=== PATIENT | male | born 1960 | race American Indian/Alaskan Native ===

== ENCOUNTER 2017-08-19 13:19 | Observation (INO) | payer MEDICAID ==
[2017-08-19 13:20] VITALS: BMI 35.6
[2017-08-19] MEDS ORDERED: Clindamycin 600mg/50ml D5W 600 MG/50 ML VIAL IVPB STA (13:38)
--- NOTE | 2017-08-19 13:41 | ED PDOC ---
Lower Extremity Pain/Injury Time Seen by Provider: 08/19/17 13:32 Chief Complaint (Nursing): Lower Extremity Problem/Injury History Per: Patient History/Exam Limitations: no limitations Onset/Duration Of Symptoms: Other (x 1 week) Current Symptoms Are (Timing): Still Present Additional Complaint(s): 56-year-old male, with a history of Hypertension, presents to ED complaining of swelling and redness to right calf x 1 week. Denies fever, chest pain or shortness of breath. No Trauma. PMD: Deshawn Hall Past Medical History Reviewed: Historical Data, Nursing Documentation, Vital Signs Vital Signs: Last Vital Signs Temp 98.8 F 08/19/17 13:27 Pulse 82 08/19/17 13:27 Resp 18 08/19/17 13:27 BP 146/86 08/19/17 13:27 Pulse Ox 99 08/19/17 13:27 - Medical History PMH: Asthma, HTN - Surgical History Surgical History: No Surg Hx - Family History Family History: States: Unknown Family Hx - Home Medications Home Medications: Ambulatory Orders Medication Instructions Recorded Albuterol Sulfate [Albuterol 3 ml IH Q4 #1 barbara 12/27/13 Sulfate 2.5mg/3 ml 0.083%] Albuterol [Proventil] 0.09 mg IH Q4 #1 pkg 12/27/13 Azithromycin 250 mg PO DAILY #0 tab 12/27/13 Albuterol Sulfate [Proair Hfa] 0.09 mg IH Q6H PRN #2 inh 04/12/15 Azithromycin [Zithromax Z-Bennie] 250 mg PO DAILY 5 Days tab 04/12/15 Prednisone 20 mg PO BID #10 tab 04/12/15 Albuterol HFA [Ventolin HFA 90 2 puff IH [id number] #1 puff 07/28/15 mcg/actuation (8 g)] Fluticasone/Salmeterol 250/50 1 puff IH Q12 #1 puff 07/28/15 [Advair Diskus] Albuterol 0.042% [Albuterol 0.042% 3 ml IH Q6 #1 packet 10/07/15 Inhal Barbara (1.25mg/3ml) UD] Cyclobenzaprine [Cyclobenzaprine 10 mg PO TID #20 tab 10/07/15 HCl] Ibuprofen [Motrin] 600 mg PO Q6 #20 tab 10/07/15 Albuterol 0.042% [Albuterol 0.042% 3 ml IH Q6 #1 packet 10/16/15 Inhal Barbara (1.25mg/3ml) UD] Guaifenesin/Pseudoephedrne HCl 1 tab PO DAILY PRN #30 ter 10/16/15 [Mucinex D 600 mg-60 mg] Promethazine HCl/Codeine 5 ml PO HS #80 ml 10/16/15 [Promethazine HCl-Codeine Phosphate 10 mg/5 ml] Albuterol HFA [Ventolin HFA 90 2 puff IH [id number] PRN #0 puff 12/18/15 mcg/actuation (8 g)] Metoprolol Tartrate 50 mg PO DAILY #30 tablet 12/18/15 - Allergies Allergies/Adverse Reactions: Allergies Allergy/AdvReac Type Severity Reaction Status Date / Time No Known Allergies Allergy Verified 10/16/15 11:38 Review of Systems ROS Statement: Except As Marked, All Systems Reviewed And Found Negative Constitutional: Negative for: Fever Cardiovascular: Negative for: Chest Pain Respiratory: Negative for: Shortness of Breath Musculoskeletal: Positive for: Other (Swelling and redness to right calf) Physical Exam - Reviewed Nursing Documentation Reviewed: Yes Vital Signs Reviewed: Yes - Physical Exam Cardiovascular/Chest: Positive for: Regular Rate, Rhythm Respiratory: Positive for: Normal Breath Sounds. Negative for: Respiratory Distress Extremity: Positive for: Swelling (Right Lower Extremity: swelling and erythema circumstantially from mid-chong to ankle). Negative for: Calf Tenderness, Other (Homans sign) - Laboratory Results Result Diagrams: 08/19/17 14:04 - ECG O2 Sat by Pulse Oximetry: 99 (RA) Pulse Ox Interpretation: Normal Medical Decision Making Medical Decision Making: Time: 13:37 Plan: - EKG - CMP - CBC - Cleocin 600 mg Sodium Chloride 0.9% 50 ml IVPB - Blood Culture - Duplex Lower Extremity Vein Right Ultrasound Scribe Attestation: Documented by López Phillips, acting as a scribe for Praveen Zuluaga MD Provider Scribe Attestation: All medical record entries made by the Scribe were at my direction and personally dictated by me. I have reviewed the chart and agree that the record accurately reflects my personal performance of the history, physical exam, medical decision making, and the department course for this patient. I have also personally directed, reviewed, and agree with the discharge instructions and disposition. Disposition - Clinical Impression Clinical Impression: DVT (deep venous thrombosis) - Patient ED Disposition Is Patient to be Admitted: Yes - Disposition Disposition Time: 15:49 Condition: FAIR Forms: [email or web address] ([place]) - Pt Status Changed To: Hospital Disposition Of: Observation - POA Present On Arrival: None
[2017-08-19 14:11] LABS: BASO # 0.1 K/uL (0.0-0.2); BASO % 1.1 % (0.0-2.0); EOS # 0.4 K/uL (0.0-0.7); EOS % 5.4 % (0.0-4.0); HEMOGLOBIN 13.9 g/dL (12.0-18.0); LYMPH # 2.8 K/uL (1.0-4.3); LYMPH % 37.9 % (20.0-40.0); MEAN CORPUSCULAR HEMOGLOBIN 27.4 pg (27.0-31.0); MEAN CORPUSCULAR HGB CONC 33.5 g/dL (33.0-37.0); MEAN PLATELET VOLUME 8.1 fl (7.2-11.7); MONO # 0.5 K/uL (0.0-0.8); MONO % 6.5 % (0.0-10.0); NEUT # 3.6 K/uL (1.8-7.0); NEUT % 49.1 % (50.0-75.0); NRBC % 0.2 % (0.0-0.0); RBC 5.07 Mil/uL (4.40-5.90); RED CELL DISTRIBUTION WIDTH 16.3 % (11.5-14.5); WHITE BLOOD COUNT 7.4 K/uL (4.8-10.8)
[2017-08-19] MEDS ORDERED: Clindamycin 600mg/50ml NS 600 MG/50 ML BAG IVPB ONE (14:42)
[2017-08-19] MEDS ORDERED: Clindamycin in NS 300 MG/50 ML BAG IV ONE (16:00)
[2017-08-19] MEDS ORDERED: Enoxaparin 120 mg Syringe SC ONE (16:00)
--- NOTE | 2017-08-19 16:11 | US ---
PROCEDURE: Right lower extremity venous duplex Doppler. HISTORY: r/o DVT COMPARISON: None available. TECHNIQUE: Common femoral, superficial femoral, popliteal and posterior tibial veins were evaluated. Flow was assessed with color Doppler, compressibility, assessment of phasic flow and augmentation response. FINDINGS: COMMON FEMORAL VEIN: Unremarkable. SUPERFICIAL FEMORAL VEIN: Proximal SFV is compressible, augments and exhibits normal phasic color Doppler blood flow with no suspicious grayscale findings. However, intermediate echoes are are seen throughout the visualize lumen of the mid to distal SFV with no color Doppler blood flow or compressibility of this segment compatible with occlusive thrombosis. POPLITEAL VEIN: Occlusive thrombosis identified here identical to that seen in the mid to distal right SFV, manifest by noncompressibility, intermediate echogenicity in the lumen and lack of spontaneous color Doppler blood flow. POSTERIOR TIBIAL VEIN: Unremarkable. OTHER FINDINGS: None. IMPRESSION: Occlusive thrombosis at mid to distal right superficial femoral vein and the entire popliteal vein. Findings discussed with Dr. Zuluaga 08/19/2017 4:10 p.m. with written down and read back verification.
[2017-08-19] MEDS ORDERED: Albuterol HFA 90 mcg/actuation (8 g) IH PRN (16:44)
[2017-08-19 17:06] LABS: ALBUMIN 3.9 g/dL (3.5-5.0); ALT/SGPT 50 U/L (21-72); AST/SGOT 50 U/L (17-59); BLOOD UREA NITROGEN 15 mg/dl (9-20); CALCIUM 9.2 mg/dL (8.4-10.2); GFR AFRICAN-AMERICAN > 60; GFR NON-AFRICAN AMERICAN > 60
[2017-08-19 18:45] VITALS: O2SAT 95
[2017-08-19] MEDS ORDERED: Pneumococcal 23-Valent Vaccine IM ONE (19:01)
[2017-08-19] MEDS ORDERED: Enoxaparin 120 mg Syringe SC SCH (21:00)
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
[2017-08-20] MEDS ORDERED: Enoxaparin 120 mg Syringe SC SCH (06:00)
[2017-08-20 06:43] LABS: BASO % 0.7 % (0.0-2.0); EOS # 0.4 K/uL (0.0-0.7); EOS % 7.9 % (0.0-4.0); HEMOGLOBIN 13.5 g/dL (12.0-18.0); LYMPH % 36.9 % (20.0-40.0); MEAN CELL VOLUME 81.9 fl (80.0-94.0); MEAN CORPUSCULAR HEMOGLOBIN 27.5 pg (27.0-31.0); MEAN CORPUSCULAR HGB CONC 33.5 g/dL (33.0-37.0); MEAN PLATELET VOLUME 8.5 fl (7.2-11.7); MONO # 0.4 K/uL (0.0-0.8); MONO % 7.6 % (0.0-10.0); NEUT # 2.5 K/uL (1.8-7.0); NEUT % 46.9 % (50.0-75.0); NRBC % 0.2 % (0.0-0.0); RBC 4.92 Mil/uL (4.40-5.90); RED CELL DISTRIBUTION WIDTH 16.5 % (11.5-14.5); WHITE BLOOD COUNT 5.3 K/uL (4.8-10.8)
[2017-08-20 06:47] LABS: PROTHROMBIN TIME 11.4 Seconds (9.8-13.1)
[2017-08-20 06:48] LABS: PARTIAL THROMBOPLASTIN TIME 36.8 Seconds (25.6-37.1)
[2017-08-20 06:50] LABS: ALB/GLOB RATIO 0.9 (1.0-2.1); ALBUMIN 3.4 g/dL (3.5-5.0); ALT/SGPT 43 U/L (21-72); AST/SGOT 40 U/L (17-59); BLOOD UREA NITROGEN 17 mg/dl (9-20); CALCIUM 9.2 mg/dL (8.4-10.2); GFR AFRICAN-AMERICAN > 60; GFR NON-AFRICAN AMERICAN > 60
--- NOTE | 2017-08-20 07:17 | CP.PCM.CON ---
History of Present Illness - History of Present Illness History of Present Illness: Podiatry Consult Note - Dr. Villalba 56M PMHx HTN seen and evaluated at bedside concerning a right foot blister. Patient resting in bed comfortably, NAD. Patient states he first developed the blister about 1 week ago from his boots. Patient reports after his right lower extremity swelled, his foot became too swollen for his boots and felt constant friction on the bottom of his foot. Patient states he has been putting unknown OTC compound cream for treatment. Reports pain only with ambulation. Denies N/V/ F/D/C/SOB/calf pain. Offers no other complaints. Review of Systems - Review of Systems All systems: reviewed and no additional remarkable complaints except (as per HPI ) Past Patient History - Infectious Disease Hx of Infectious Diseases: None - Past Medical History & Family History Past Medical History?: Yes - Past Social History Smoking Status: Heavy Smoker > 10 Cigarettes Daily - CARDIAC Hx Cardiac Disorders: Yes Hx Hypotension: Yes - PULMONARY Hx Respiratory Disorders: Yes Hx Asthma: Yes - NEUROLOGICAL Hx Neurological Disorder: No - HEENT Hx HEENT Problems: No - RENAL Hx Chronic Kidney Disease: No - ENDOCRINE/METABOLIC Hx Endocrine Disorders: No - HEMATOLOGICAL/ONCOLOGICAL Hx Blood Disorders: No - INTEGUMENTARY Hx Dermatological Problems: No - MUSCULOSKELETAL/RHEUMATOLOGICAL Hx Musculoskeletal Disorders: No Hx Falls: No - GASTROINTESTINAL Hx Gastrointestinal Disorders: No - GENITOURINARY/GYNECOLOGICAL Hx Genitourinary Disorders: No - PSYCHIATRIC Hx Psychophysiologic Disorder: No Hx Substance Use: No - SURGICAL HISTORY Hx Surgeries: No - ANESTHESIA Hx Anesthesia: No Hx Anesthesia Reactions: No Hx Malignant Hyperthermia: No Has any member of the family had a problem w/ anesthesia?: No Meds Allergies/Adverse Reactions: Allergies Allergy/AdvReac Type Severity Reaction Status Date / Time No Known Allergies Allergy Verified 10/16/15 11:38 - Medications Medications: Current Medications Albuterol (Ventolin Hfa 90 Mcg/Actuation (8 G)) 2 puff IH Q6 PRN PRN Reason: Shortness of Breath Enoxaparin Sodium (Lovenox) 120 mg SC Q12@0600,1800 STEPHANIE PRN Reason: Protocol Last Admin: 08/20/17 06:34 Dose: 120 mg Home Med (Buprenorphine Hcl/Naloxone Hcl [Suboxone 8 Mg-2 Mg Sl Film]) 1 film SL Q12 [facility] Metoprolol Tartrate (Lopressor) 50 mg PO Q12 [facility] Last Admin: 08/19/17 21:29 Dose: 50 mg Montelukast Sodium (Singulair) 10 mg PO HS [facility] Last Admin: 08/19/17 21:29 Dose: 10 mg Pantoprazole Sodium (Protonix Ec Tab) 40 mg PO DAILY [facility] Physical Exam - Constitutional Appears: Well, Non-toxic, No Acute Distress - Extremities Exam Additional comments: RLE focused physical exam: VASC: DP and PT pulses palpable 2/4. CFT <3 seconds to all digits. Temperature gradient cool to cool. Nonpitting edema noted to RLE. NEURO: Light touch, motor, and protective sensation intact. DERM: Serous-filled blister measuring approximately 0.5 x 1cm noted proximal sub 1st met head. Hyperkeratotic lesion sub 2nd met head. ORTHO: Pain on palpation to blister. Muscle strength 5/5 for all dorsiflexors, plantarflexors, inverters, everters. - Neurological Exam Neurological exam: Alert, Oriented x3 - Psychiatric Exam Psychiatric exam: Normal Affect, Normal Mood Results - Vital Signs Recent Vital Signs: Last Vital Signs Temp 97.8 F 08/20/17 00:23 Pulse 68 08/20/17 00:23 Resp 18 08/20/17 00:23 BP 96/60 L 08/20/17 00:23 Pulse Ox 95 08/20/17 00:23 - Labs Result Diagrams: 08/20/17 05:30 08/20/17 05:30 Labs: Laboratory Results - last 24 hr 08/19/17 08/19/17 08/20/17 14:04 16:40 05:30 WBC 7.4 5.3 RBC 5.07 4.92 Hgb 13.9 13.5 Hct 41.5 40.3 MCV 82.0 81.9 MCH 27.4 27.5 MCHC 33.5 33.5 RDW 16.3 H 16.5 H Plt Count 129 L 145 MPV 8.1 8.5 Neut % (Auto) 49.1 L 46.9 L Lymph % (Auto) 37.9 36.9 [place] % (Auto) 6.5 7.6 Eos % (Auto) 5.4 H 7.9 H Baso % (Auto) 1.1 0.7 Neut # (Auto) 3.6 2.5 Lymph # (Auto) 2.8 2.0 [place] # (Auto) 0.5 0.4 Eos # (Auto) 0.4 0.4 Baso # (Auto) 0.1 0.0 PT INR APTT Sodium 143 Potassium 4.2 Chloride 102 Carbon Dioxide 27 Anion Gap 18 BUN 15 Creatinine 0.9 Est GFR ( Amer) > 60 Est GFR (Non-Af Amer) > 60 Random Glucose 89 Calcium 9.2 Total Bilirubin 1.0 AST 50 ALT 50 Alkaline Phosphatase 91 Total Protein 7.8 Albumin 3.9 Globulin 3.9 Albumin/Globulin Ratio 1.0 08/20/17 08/20/17 05:30 05:30 WBC RBC Hgb Hct MCV MCH MCHC RDW Plt Count MPV Neut % (Auto) Lymph % (Auto) [place] % (Auto) Eos % (Auto) Baso % (Auto) Neut # (Auto) Lymph # (Auto) [place] # (Auto) Eos # (Auto) Baso # (Auto) PT 11.4 INR 1.0 APTT 36.8 Sodium 142 Potassium 4.4 Chloride 99 Carbon Dioxide 30 Anion Gap 17 BUN 17 Creatinine 1.0 Est GFR ( Amer) > 60 Est GFR (Non-Af Amer) > 60 Random Glucose 112 H Calcium 9.2 Total Bilirubin 1.1 AST 40 ALT 43 Alkaline Phosphatase 80 Total Protein 7.2 Albumin 3.4 L Globulin 3.8 Albumin/Globulin Ratio 0.9 L Assessment & Plan - Assessment and Plan (Free Text) Assessment: 56M PMHx HTN with friction blister to right foot, stable Plan: Patient seen and evaluated Discussed with attending, Dr. Deejay Holloway, WBC WNL Blister lanced using a #18 gauge needle without incident, able to express approximately 0.1cc serous fluid - dressed with xeroform, DSD Blister appears stable at this time, will continue to monitor Podiatry will continue to follow
--- NOTE | 2017-08-20 07:34 | CARD ---
APPROVED REPORT EKG Measurement Heart [id number] <Conclusion> Normal sinus rhythm ST elevation, probably due to early repolarization Borderline ECG
--- NOTE | 2017-08-20 07:44 | CP.PCM.HP ---
History of Present Illness - History of Present Illness History of Present Illness: pt admitted for rle dvt w/ ?? superimposed cellulitis. no f/c, n/v/d. bw noted, imaging noted. heme/onc consult appriciated. penidng podiatry consult and ct chest. joana lovenox and clinda well Present on Admission - Present on Admission Any Indicators Present on Admission: No Review of Systems - Integumentary Integumentary: As Per HPI, Erythema, Swelling Past Patient History - Infectious Disease Hx of Infectious Diseases: None - Past Medical History & Family History Past Medical History?: Yes - Past Social History Smoking Status: Heavy Smoker > 10 Cigarettes Daily - CARDIAC Hx Cardiac Disorders: Yes Hx Hypotension: Yes - PULMONARY Hx Respiratory Disorders: Yes Hx Asthma: Yes - NEUROLOGICAL Hx Neurological Disorder: No - HEENT Hx HEENT Problems: No - RENAL Hx Chronic Kidney Disease: No - ENDOCRINE/METABOLIC Hx Endocrine Disorders: No - HEMATOLOGICAL/ONCOLOGICAL Hx Blood Disorders: No - INTEGUMENTARY Hx Dermatological Problems: No - MUSCULOSKELETAL/RHEUMATOLOGICAL Hx Musculoskeletal Disorders: No Hx Falls: No - GASTROINTESTINAL Hx Gastrointestinal Disorders: No - GENITOURINARY/GYNECOLOGICAL Hx Genitourinary Disorders: No - PSYCHIATRIC Hx Psychophysiologic Disorder: No Hx Substance Use: No - SURGICAL HISTORY Hx Surgeries: No - ANESTHESIA Hx Anesthesia: No Hx Anesthesia Reactions: No Hx Malignant Hyperthermia: No Has any member of the family had a problem w/ anesthesia?: No Meds Allergies/Adverse Reactions: Allergies Allergy/AdvReac Type Severity Reaction Status Date / Time No Known Allergies Allergy Verified 10/16/15 11:38 Physical Exam - Constitutional Appears: Well, Non-toxic, No Acute Distress - Head Exam Head Exam: ATRAUMATIC, NORMAL INSPECTION, NORMOCEPHALIC - Eye Exam Eye Exam: EOMI, Normal appearance, PERRL Pupil Exam: NORMAL ACCOMODATION, PERRL - ENT Exam ENT Exam: Mucous Membranes Moist, Normal Exam - Neck Exam Neck exam: Positive for: Normal Inspection - Respiratory Exam Respiratory Exam: Clear to Auscultation Bilateral, NORMAL BREATHING PATTERN - Cardiovascular Exam Cardiovascular Exam: REGULAR RHYTHM, RRR, +S1, +S2 (d) - GI/Abdominal Exam GI & Abdominal Exam: Normal Bowel Sounds, Soft. absent: Tenderness - Extremities Exam Extremities exam: Positive for: full ROM, normal capillary refill, normal inspection, pedal edema, tenderness, pedal pulses present Additional comments: r calf edema, tenderness, positive homans, erythma, warmth - Back Exam Back exam: NORMAL INSPECTION - Neurological Exam Neurological exam: Alert, CN II-XII Intact, Normal Gait, Oriented x3, Reflexes Normal - Psychiatric Exam Psychiatric exam: Normal Affect, Normal Mood - Skin Skin Exam: Dry, Intact, Normal Color, Warm Results - Vital Signs Recent Vital Signs: Last Vital Signs Temp 97.8 F 08/20/17 00:23 Pulse 68 08/20/17 00:23 Resp 18 08/20/17 00:23 BP 96/60 L 08/20/17 00:23 Pulse Ox 95 08/20/17 00:23 - Labs Result Diagrams: 08/20/17 05:30 08/20/17 05:30 Labs: Laboratory Results - last 24 hr 08/19/17 08/19/17 08/20/17 14:04 16:40 05:30 WBC 7.4 5.3 RBC 5.07 4.92 Hgb 13.9 13.5 Hct 41.5 40.3 MCV 82.0 81.9 MCH 27.4 27.5 MCHC 33.5 33.5 RDW 16.3 H 16.5 H Plt Count 129 L 145 MPV 8.1 8.5 Neut % (Auto) 49.1 L 46.9 L Lymph % (Auto) 37.9 36.9 [place] % (Auto) 6.5 7.6 Eos % (Auto) 5.4 H 7.9 H Baso % (Auto) 1.1 0.7 Neut # (Auto) 3.6 2.5 Lymph # (Auto) 2.8 2.0 [place] # (Auto) 0.5 0.4 Eos # (Auto) 0.4 0.4 Baso # (Auto) 0.1 0.0 PT INR APTT Sodium 143 Potassium 4.2 Chloride 102 Carbon Dioxide 27 Anion Gap 18 BUN 15 Creatinine 0.9 Est GFR ( Amer) > 60 Est GFR (Non-Af Amer) > 60 Random Glucose 89 Calcium 9.2 Total Bilirubin 1.0 AST 50 ALT 50 Alkaline Phosphatase 91 Total Protein 7.8 Albumin 3.9 Globulin 3.9 Albumin/Globulin Ratio 1.0 08/20/17 08/20/17 05:30 05:30 WBC RBC Hgb Hct MCV MCH MCHC RDW Plt Count MPV Neut % (Auto) Lymph % (Auto) [place] % (Auto) Eos % (Auto) Baso % (Auto) Neut # (Auto) Lymph # (Auto) [place] # (Auto) Eos # (Auto) Baso # (Auto) PT 11.4 INR 1.0 APTT 36.8 Sodium 142 Potassium 4.4 Chloride 99 Carbon Dioxide 30 Anion Gap 17 BUN 17 Creatinine 1.0 Est GFR ( Amer) > 60 Est GFR (Non-Af Amer) > 60 Random Glucose 112 H Calcium 9.2 Total Bilirubin 1.1 AST 40 ALT 43 Alkaline Phosphatase 80 Total Protein 7.2 Albumin 3.4 L Globulin 3.8 Albumin/Globulin Ratio 0.9 L Assessment & Plan (1) Cellulitis Assessment and Plan: rle-clinda, podiatry Status: Acute (2) DVT (deep venous thrombosis) Assessment and Plan: lovenox heme/onc ct chest Status: Acute (3) Thrombocytopenia Assessment and Plan: heme/onc Status: Acute (4) Tobacco abuse Assessment and Plan: elinor dexter will work w/ pt outpt for quitting Status: Acute Decision To Admit - Pt Status Changed To: Hospital Disposition Of: Observation - . Bed Request Type: Med/Surg Admitting Physician: Alcon Hall
[2017-08-20 08:23] VITALS: BP 104/68; PULSE 70; RESP 20; TEMP 98
[2017-08-20] MEDS ORDERED: Pantoprazole 40 mg EC Tab PO SCH (09:00)
--- NOTE | 2017-08-20 11:51 | CT ---
PROCEDURE: CT Chest without contrast HISTORY: rule out occult malignancy; smoking and DVT COMPARISON: None. TECHNIQUE: Contiguous axial images were obtained through the chest without intravenous contrast enhancement. Sagittal and coronal reconstructions were performed. Radiation dose (DLP): 823.59 mGy-cm. This CT exam was performed using one or more of the following dose reduction techniques: Automated exposure control, adjustment of the mA and/or kV according to patient size, and/or use of iterative reconstruction technique. FINDINGS: LUNGS: Clear lungs. Visualized airway clear. MEDIASTINUM: Unremarkable thoracic aorta. No aneurysm. Normal sized heart. Main pulmonary artery unremarkable. No vascular congestion. No lymphadenopathy. PLEURA: No pleural fluid. No pneumothorax. BONES: No fracture. No destructive lesion. UPPER ABDOMEN: Grossly unremarkable. OTHER FINDINGS: None. IMPRESSION: Unremarkable non-contrast enhanced CT of the chest.
--- NOTE | 2017-08-20 15:49 | CP.PCM.DIS ---
Provider - Provider Date of Admission: 08/19/17 15:48 Attending physician: Alcon Hall MD Time Spent in preparation of Discharge (in minutes): 15 Diagnosis - Discharge Diagnosis (1) Cellulitis Status: Acute (2) DVT (deep venous thrombosis) Status: Acute (3) Thrombocytopenia Status: Acute (4) Tobacco abuse Status: Acute Hospital Course - Lab Results Lab Results: Micro Results 08/19/17 14:04 Blood Blood Culture - Preliminary NO GROWTH AFTER 24 HOURS Most Recent Lab Values WBC 5.3 K/uL (4.8-10.8) 08/20/17 05:30 RBC 4.92 Mil/uL (4.40-5.90) 08/20/17 05:30 Hgb 13.5 g/dL (12.0-18.0) 08/20/17 05:30 Hct 40.3 % (35.0-51.0) 08/20/17 05:30 MCV 81.9 fl (80.0-94.0) 08/20/17 05:30 MCH 27.5 pg (27.0-31.0) 08/20/17 05:30 MCHC 33.5 g/dL (33.0-37.0) 08/20/17 05:30 RDW 16.5 % (11.5-14.5) H 08/20/17 05:30 Plt Count 145 K/uL (130-400) 08/20/17 05:30 MPV 8.5 fl (7.2-11.7) 08/20/17 05:30 Neut % (Auto) 46.9 % (50.0-75.0) L 08/20/17 05:30 Lymph % (Auto) 36.9 % (20.0-40.0) 08/20/17 05:30 [place] % (Auto) 7.6 % (0.0-10.0) 08/20/17 05:30 Eos % (Auto) 7.9 % (0.0-4.0) H 08/20/17 05:30 Baso % (Auto) 0.7 % (0.0-2.0) 08/20/17 05:30 Neut # (Auto) 2.5 K/uL (1.8-7.0) 08/20/17 05:30 Lymph # (Auto) 2.0 K/uL (1.0-4.3) 08/20/17 05:30 [place] # (Auto) 0.4 K/uL (0.0-0.8) 08/20/17 05:30 Eos # (Auto) 0.4 K/uL (0.0-0.7) 08/20/17 05:30 Baso # (Auto) 0.0 K/uL (0.0-0.2) 08/20/17 05:30 PT 11.4 Seconds (9.8-13.1) 08/20/17 05:30 INR 1.0 (0.9-1.2) 08/20/17 05:30 APTT 36.8 Seconds (25.6-37.1) 08/20/17 05:30 Sodium 142 mmol/l (132-148) 08/20/17 05:30 Potassium 4.4 MMOL/L (3.6-5.0) 08/20/17 05:30 Chloride 99 mmol/L (98-107) 08/20/17 05:30 Carbon Dioxide 30 mmol/L (22-30) 08/20/17 05:30 Anion Gap 17 (10-20) 08/20/17 05:30 BUN 17 mg/dl (9-20) 08/20/17 05:30 Creatinine 1.0 mg/dl (0.8-1.5) 08/20/17 05:30 Est GFR ( Amer) > 60 08/20/17 05:30 Est GFR (Non-Af Amer) > 60 08/20/17 05:30 Random Glucose 112 mg/dL (75-110) H 08/20/17 05:30 Calcium 9.2 mg/dL (8.4-10.2) 08/20/17 05:30 Total Bilirubin 1.1 mg/dl (0.2-1.3) 08/20/17 05:30 AST 40 U/L (17-59) 08/20/17 05:30 ALT 43 U/L (21-72) 08/20/17 05:30 Alkaline Phosphatase 80 U/L (38-126) 08/20/17 05:30 Total Protein 7.2 G/DL (6.3-8.2) 08/20/17 05:30 Albumin 3.4 g/dL (3.5-5.0) L 08/20/17 05:30 Globulin 3.8 gm/dL (2.2-3.9) 08/20/17 05:30 Albumin/Globulin Ratio 0.9 (1.0-2.1) L 08/20/17 05:30 - Hospital Course Hospital Course: lovenox ct chest, heme/onc podiatry, foot care Discharge Exam - Head Exam Head Exam: ATRAUMATIC, NORMAL INSPECTION, NORMOCEPHALIC Discharge Plan - Discharge Medications Prescriptions: Acidoph/L.bulg/Bif.b/S.thermop [Bacid Probiotic 5%-80%-10%-5%] 1 tab PO BID #28 tab Apixaban [Eliquis] 5 mg PO BID #60 tab Clindamycin [Cleocin] 300 mg PO Q6 #28 cap - Follow Up Plan Condition: FAIR Disposition: HOME/ ROUTINE Instructions: Deep Vein Thrombosis (Blood Clots in the Legs) Additional Instructions: final dx-dvt, r foot wound, rle cellulitis f/u heme/onc nad podiatry outpt. rted prn, med sper med rec, meds e-rx f/u rmg in am pt doing well w/o dyspnea, calf pain. Referrals: Rashard Qureshi MD [Staff Provider] -
== END 2017-08-20 13:28 | disposition home or self-care (01) ==
LOC: H.ER 13:19 → H.ERHOLD 15:48 → H.MEDSURG1 18:18
PROVIDERS: ADMIT Family Medicine; ATTEND Family Medicine
DX: L03.115 Cellulitis of right lower limb (principal); Z72.0 Tobacco use; D69.6 Thrombocytopenia, unspecified; Z23 Encounter for immunization; I10 Essential (primary) hypertension; J45.909 Unspecified asthma, uncomplicated; I82.411 Acute embolism and thrombosis of right femoral vein; I82.431 Acute embolism and thrombosis of right popliteal vein
CPT/HCPCS: 10021; 36415; 71250; 80053; 81240; 81241; 85025; 85610; 85730; 86146; 86147; 86148; 87040; 90471; 90732; 93005; 93971; 96372; 99284; G0378; J1650

== ENCOUNTER 2017-08-25 12:39 | Emergency (ER) | payer MEDICAID ==
[2017-08-25 12:40] VITALS: BMI 35.6
[2017-08-25 12:47] VITALS: TEMP 99
--- NOTE | 2017-08-25 15:13 | CT ---
PROCEDURE: CT HEAD WITHOUT CONTRAST. HISTORY: HARDY after starting ELiquis for DVT COMPARISON: CT head dated 10/26/2013. TECHNIQUE: Axial computed tomography images were obtained through the head/brain without intravenous contrast. Radiation dose: Total exam DLP = 873.8 mGy-cm. This CT exam was performed using one or more of the following dose reduction techniques: Automated exposure control, adjustment of the mA and/or kV according to patient size, and/or use of iterative reconstruction technique. FINDINGS: HEMORRHAGE: No intracranial hemorrhage. BRAIN: No mass effect or edema. No atrophy or chronic microvascular ischemic changes. VENTRICLES: Unremarkable. No hydrocephalus. CALVARIUM: Unremarkable. PARANASAL SINUSES: Unremarkable as visualized. No significant inflammatory changes. MASTOID AIR CELLS: Unremarkable as visualized. No inflammatory changes. OTHER FINDINGS: None. IMPRESSION: No acute intracranial pathology.
--- NOTE | 2017-08-25 16:52 | ED PDOC ---
HPI: General Adult Time Seen by Provider: 08/25/17 13:19 Chief Complaint (Nursing): GI Problem Chief Complaint (Provider): headache and constipation History Per: Patient History/Exam Limitations: no limitations Current Symptoms Are (Timing): Still Present Additional Complaint(s): 56 year old male with a past medical history of chronic pain and opioid use presents to the ED complaining of headache and constipation. Patient was recently admitted for DVT in leg and took eliquis blood thinner medication and developed a headache, has not had a bowel movement and feels discomfortable. Denies nausea, vomiting, and abdominal pain. PMD: Alcon Hall Past Medical History Reviewed: Historical Data, Nursing Documentation, Vital Signs Vital Signs: Last Vital Signs Temp 99.0 F 08/25/17 12:44 Pulse 115 H 08/25/17 12:44 Resp 20 08/25/17 12:44 BP 144/80 08/25/17 12:44 Pulse Ox 99 08/25/17 16:57 - Medical History PMH: Asthma, HTN Denies: Chronic Kidney Disease - Family History Family History: States: Unknown Family Hx - Home Medications Home Medications: Ambulatory Orders Medication Instructions Recorded Albuterol HFA [Ventolin HFA 90 2 puff IH Q6 PRN 08/19/17 mcg/actuation (8 g)] Buprenorphine HCl/Naloxone HCl 1 film SL Q12 08/19/17 [Suboxone 8 mg-2 mg Sl Film] Metoprolol Tartrate [Lopressor] 50 mg PO Q12 08/19/17 Montelukast [Singulair] 10 mg PO HS 08/19/17 Omeprazole 40 mg PO DAILY 08/19/17 Acidoph/L.bulg/Bif.b/S.thermop 1 tab PO BID #28 tab 08/20/17 [Bacid Probiotic 5%-80%-10%-5%] Apixaban [Eliquis] 5 mg PO BID #60 tab 08/20/17 Clindamycin [Cleocin] 300 mg PO Q6 #28 cap 08/20/17 - Allergies Allergies/Adverse Reactions: Allergies Allergy/AdvReac Type Severity Reaction Status Date / Time No Known Allergies Allergy Verified 10/16/15 11:38 Review of Systems ROS Statement: Except As Marked, All Systems Reviewed And Found Negative Cardiovascular: Negative for: Chest Pain Gastrointestinal: Positive for: Constipation. Negative for: Vomiting, Abdominal Pain, Diarrhea Neurological: Positive for: Headache Physical Exam - Reviewed Nursing Documentation Reviewed: Yes - Physical Exam Appears: Positive for: Non-toxic, No Acute Distress Head Exam: Positive for: ATRAUMATIC, NORMAL INSPECTION, NORMOCEPHALIC Skin: Positive for: Normal Color, Warm, Dry Eye Exam: Positive for: EOMI, Normal appearance, PERRL ENT: Positive for: Normal ENT Inspection Neck: Positive for: Normal, Painless ROM, Supple. Negative for: Decreased ROM Cardiovascular/Chest: Positive for: Regular Rate, Rhythm. Negative for: Murmur Respiratory: Positive for: Normal Breath Sounds. Negative for: Decreased Breath Sounds, Accessory Muscle Use, Wheezing, Respiratory Distress Gastrointestinal/Abdominal: Positive for: Normal Exam, Bowel Sounds, Soft. Negative for: Tenderness, Guarding, Rebound Back: Positive for: Normal Inspection. Negative for: L CVA Tenderness, R CVA Tenderness Extremity: Positive for: Normal ROM. Negative for: Tenderness, Pedal Edema, Deformity Neurologic/Psych: Positive for: Alert, Oriented (x3). Negative for: Motor/ Sensory Deficits - ECG O2 Sat by Pulse Oximetry: 99 (RA) Pulse Ox Interpretation: Normal - Radiology X-Ray: Read By Radiologist - Progress Condition: Re-examined, Improving,but remains with symptoms Medical Decision Making Medical Decision Making: Time: 1345 Initial Impression: headache and constipation Initial Plan: --Head w/o contrast [CT] --Fleet Enema 135ml --Toradol 60mg --Reevaluation Time: 1511 PROCEDURE: CT HEAD WITHOUT CONTRAST. FINDINGS: HEMORRHAGE: No intracranial hemorrhage. BRAIN: No mass effect or edema. No atrophy or chronic microvascular ischemic changes. VENTRICLES: Unremarkable. No hydrocephalus. CALVARIUM: Unremarkable. PARANASAL SINUSES: Unremarkable as visualized. No significant inflammatory changes. MASTOID AIR CELLS: Unremarkable as visualized. No inflammatory changes. OTHER FINDINGS: None. IMPRESSION: No acute intracranial pathology. Scribe Attestation: Documented by Tapan Hicks, acting as a scribe for Milagros Pascual MD Provider Scribe Attestation: All medical record entries made by the Scribe were at my direction and personally dictated by me. I have reviewed the chart and agree that the record accurately reflects my personal performance of the history, physical exam, medical decision making, and the department course for this patient. I have also personally directed, reviewed, and agree with the discharge instructions and disposition. 4.45p - patient is feeling better. will discharge/ Procedures - Time-Out Correct Patient (with visual ID + MR# on ID Band): No Correct Procedure: No Correct Site Marked: No X-Ray Marked: No Disposition - Clinical Impression Clinical Impression: Headache, Constipation - Patient ED Disposition Is Patient to be Admitted: No Doctor Will See Patient In The: Office Counseled Patient/Family Regarding: Diagnosis - Disposition Referrals: [facility] [Provider Group] Disposition: Routine/Home Disposition Time: 16:45 Condition: STABLE Instructions: Migraine Headache (DC) Forms: [employer] (Chadian), [facility] ED School/Work Excuse - Pt Status Changed To: Hospital Disposition Of: Observation - POA Present On Arrival: None Core Measure Indicators: Code Heart
[2017-08-25 17:39] VITALS: BP 116/54; PULSE 87; RESP 19; O2SAT 100
== END 2017-08-25 17:41 | disposition home or self-care (01) ==
LOC: H.ER 12:39
DX: R51 Headache (principal); K59.00 Constipation, unspecified; G89.29 Other chronic pain; I10 Essential (primary) hypertension; J45.909 Unspecified asthma, uncomplicated; Z79.01 Long term (current) use of anticoagulants
CPT/HCPCS: 70450; 96372; 99283; J1885

== ENCOUNTER 2017-12-29 07:59 | Observation (INO) | payer MEDICAID ==
--- NOTE | 2017-12-29 08:40 | ED PDOC ---
HPI: Headache Time Seen by Provider: 12/29/17 08:10 Chief Complaint (Nursing): Headache Chief Complaint (Provider): Headache History Per: Patient History/Exam Limitations: no limitations Onset/Duration Of Symptoms: Days Associated Symptoms: denies: Nausea, Vomiting Additional Complaint(s): 57 years old male with history of DVT presents to the ED complaining of shortness of breath, chest tightness, diaphoresis and headache onset last night. Patient reports he stopped taking his eliquis and restarted it 2 days ago. He denies any nausea or vomiting. PMD: Paddy Roy Past Medical History Reviewed: Historical Data, Nursing Documentation, Vital Signs Vital Signs: Last Vital Signs Temp 97.9 F 12/29/17 08:14 Pulse 48 L 12/29/17 08:28 Resp 19 12/29/17 08:28 BP 144/66 12/29/17 08:28 Pulse Ox 97 12/29/17 08:28 - Medical History PMH: Asthma, Deep Vein Thrombosis, HTN Denies: Chronic Kidney Disease - Surgical History Surgical History: No Surg Hx - Family History Family History: States: Unknown Family Hx - Social History Current smoker - smoking cessation education provided: Yes (Heavy) Alcohol: None Drugs: Denies - Home Medications Home Medications: Ambulatory Orders Medication Instructions Recorded Albuterol HFA [Ventolin HFA 90 2 puff IH Q6 PRN 08/19/17 mcg/actuation (8 g)] Buprenorphine HCl/Naloxone HCl 1 film SL Q12 08/19/17 [Suboxone 8 mg-2 mg Sl Film] Metoprolol Tartrate [Lopressor] 50 mg PO Q12 08/19/17 Montelukast [Singulair] 10 mg PO HS 08/19/17 Omeprazole 40 mg PO DAILY 08/19/17 Acidoph/L.bulg/Bif.b/S.thermop 1 tab PO BID #28 tab 08/20/17 [Bacid Probiotic 5%-80%-10%-5%] Apixaban [Eliquis] 5 mg PO BID #60 tab 08/20/17 Clindamycin [Cleocin] 300 mg PO Q6 #28 cap 08/20/17 Naloxegol Oxalate [Movantik] 25 mg PO DAILY #30 tablet 08/25/17 Buprenorphine HCl/Naloxone HCl 1 each SL BID 12/29/17 [Suboxone 2 mg-0.5 mg Sl Film] Montelukast Sodium [Singulair] 10 mg PO HS 12/29/17 - Allergies Allergies/Adverse Reactions: Allergies Allergy/AdvReac Type Severity Reaction Status Date / Time No Known Allergies Allergy Verified 10/16/15 11:38 Review of Systems ROS Statement: Except As Marked, All Systems Reviewed And Found Negative Cardiovascular: Positive for: Other (Chest tightness) Respiratory: Positive for: Shortness of Breath Gastrointestinal: Negative for: Nausea, Vomiting Neurological: Positive for: Headache Physical Exam - Reviewed Nursing Documentation Reviewed: Yes Vital Signs Reviewed: Yes - Physical Exam Appears: Positive for: Non-toxic, No Acute Distress Head Exam: Positive for: ATRAUMATIC, NORMOCEPHALIC Cardiovascular/Chest: Positive for: Regular Rate, Rhythm. Negative for: Murmur Respiratory: Positive for: Decreased Breath Sounds Gastrointestinal/Abdominal: Positive for: Normal Exam, Soft. Negative for: Tenderness Extremity: Positive for: Normal ROM. Negative for: Calf Tenderness Neurologic/Psych: Positive for: Alert, Oriented (x3) - Laboratory Results Result Diagrams: 12/29/17 08:48 12/29/17 08:48 - ECG O2 Sat by Pulse Oximetry: 97 (RA) Pulse Ox Interpretation: Normal Medical Decision Making Medical Decision Making: Time: 826 Initial Plan: --EKG --CMP --Urine drug screen --Urine dipstick --CBC --D Dimer (COAG) --PT/INR --Chest X-Ray 1007 Chest X-Ray FINDINGS: LUNGS: Mild bibasilar atelectasis and or scarring changes left greater than right PLEURA: No significant pleural effusion identified. No pneumothorax apparent. CARDIOVASCULAR: Normal. OSSEOUS STRUCTURES: No significant abnormalities. VISUALIZED UPPER ABDOMEN: Normal. OTHER FINDINGS: None. IMPRESSION: Mild bibasilar atelectasis and or scarring changes left greater than right Scribe Attestation: Documented by Najma Barry, acting as a scribe for Praveen Zuluaga MD. Provider Scribe Attestation: All medical record entries made by the Scribe were at my direction and personally dictated by me. I have reviewed the chart and agree that the record accurately reflects my personal performance of the history, physical exam, medical decision making, and the department course for this patient. I have also personally directed, reviewed, and agree with the discharge instructions and disposition. Disposition - Clinical Impression Clinical Impression: Chest pain - Patient ED Disposition Is Patient to be Admitted: Yes - Disposition Referrals: Kirill Simeon, DANIEL, [facility] [Primary Care Provider] - Disposition Time: 13:34 Condition: FAIR Forms: [employer] (Greenlandic) - Pt Status Changed To: Hospital Disposition Of: Observation - POA Present On Arrival: None
[2017-12-29 08:56] LABS: BASO % 0.4 % (0.0-2.0); EOS # 0.2 K/uL (0.0-0.7); EOS % 3.6 % (0.0-4.0); HEMOGLOBIN 13.3 g/dL (12.0-18.0); LYMPH # 2.5 K/uL (1.0-4.3); LYMPH % 42.9 % (20.0-40.0); MEAN CORPUSCULAR HEMOGLOBIN 27.6 pg (27.0-31.0); MEAN CORPUSCULAR HGB CONC 33.6 g/dL (33.0-37.0); MEAN PLATELET VOLUME 8.4 fl (7.2-11.7); MONO # 0.4 K/uL (0.0-0.8); MONO % 6.5 % (0.0-10.0); NEUT # 2.7 K/uL (1.8-7.0); NEUT % 46.6 % (50.0-75.0); NRBC % 0.1 % (0.0-0.0); RBC 4.82 Mil/uL (4.40-5.90); RED CELL DISTRIBUTION WIDTH 16.5 % (11.5-14.5); WHITE BLOOD COUNT 5.9 K/uL (4.8-10.8)
[2017-12-29 08:59] LABS: INR 0.9
[2017-12-29 09:01] LABS: ALB/GLOB RATIO 1.1 (1.0-2.1); ALBUMIN 3.9 g/dL (3.5-5.0); ALT/SGPT 35 U/L (21-72); AST/SGOT 29 U/L (17-59); BLOOD UREA NITROGEN 21 mg/dl (9-20); CALCIUM 9.1 mg/dL (8.4-10.2); GFR NON-AFRICAN AMERICAN > 60
[2017-12-29 09:45] LABS: BARBITURATES, UR NEGATIVE (NEGATIVE); BENZODIAZEPINES, UR NEGATIVE (NEGATIVE); OPIATES, UR NEGATIVE (NEGATIVE); PHENCYCLIDINE, UR NEGATIVE (NEGATIVE)
--- NOTE | 2017-12-29 10:08 | RAD ---
Date of service: 12/29/2017 HISTORY: Chest pain COMPARISON: Comparison chest 10/16/2015 TECHNIQUE: Chest PA and lateral FINDINGS: LUNGS: Mild bibasilar atelectasis and or scarring changes left greater than right PLEURA: No significant pleural effusion identified. No pneumothorax apparent. CARDIOVASCULAR: Normal. OSSEOUS STRUCTURES: No significant abnormalities. VISUALIZED UPPER ABDOMEN: Normal. OTHER FINDINGS: None. IMPRESSION: Mild bibasilar atelectasis and or scarring changes left greater than right
[2017-12-29 11:13] LABS: PROTHROMBIN TIME 9.8 Seconds (9.8-13.1)
[2017-12-29] MEDS ORDERED: Iodixanol 320 MG/ML 100 ML BOTTLE IV ONE (11:34)
[2017-12-29] MEDS ORDERED: Sodium Chloride 0.9% 50 ML IV ONE (11:34)
--- NOTE | 2017-12-29 12:50 | CT ---
Date of service: 12/29/2017 PROCEDURE: CT Chest with contrast (Pulmonary Angiogram) HISTORY: H/o DVT SOB COMPARISON: Comparison made with chest radiograph earlier same day TECHNIQUE: Axial computed tomography images were obtained of the chest in the pulmonary arterial phase of enhancement. Coronal and sagittal reformatted images were created and reviewed. Intravenous contrast dose: 99 cc Visipaque 320 Radiation dose: Total exam DLP = 410.86 mGy-cm. This CT exam was performed using one or more of the following dose reduction techniques: Automated exposure control, adjustment of the mA and/or kV according to patient size, and/or use of iterative reconstruction technique. FINDINGS: PULMONARY ARTERIES: The visualized pulmonary trunk, right and left main, lobar, segmental and proximal subsegmental branches of the pulmonary arteries are well opacified with no definitive filling defects seen to suggest acute central pulmonary embolus. Trunk measures approximately 3.3 cm. AORTA: No acute findings. No thoracic aortic aneurysm. Ascending thoracic aorta measures approximately 3.4 cm and descending thoracic aorta measures approximately 2.7 cm. LUNGS: There are multiple varying sized nodular densities/ opacities seen scattered throughout the lower lobes bilaterally as well as middle lobe. There is an approximately 8 mm nodular opacity seen superolateral aspect right middle lobe bordering the minor fissure on seen on axial image series 5 number 73 another in the posterior apex of the middle lobe measuring approximately 7.9 axial image 73. Additional small 4 mm nodule posterolateral border right lower lobe near the pleural surface measuring 4 mm. With 2 additional lower lobe nodules measuring 7 mm and nearly 12 mm both seen on axial image number 99. An additional pleural-based nodule posteromedial lung base seen on axial image number 102 abutting the hemidiaphragm. There may also be 3 additional nodules in the right posterior lung base all seen on axial image number 106. On the left side, there is a 4.2 mm nodule superior aspect left lower lobe bordering the left post lateral pleural surface and fissure seen on axial image 67. Two additional small nodules in the superior aspect right lower lobe seen on axial image number 76 and 77 measuring 3.8 and 4.7 mm respectively. Another 6.9 mm nodule left lung base image number 91 with at least 2 additional nodules slightly more inferiorly located measuring 9.1 and 3.5 mm respectively. . There are additional multiple nodular opacities in the left lung base seen on axial image number 103 through 108. Findings are of uncertain etiology and could be post infectious/inflammatory however metastatic disease must be excluded. Clinical correlation recommended. There are linear areas of atelectasis/ scarring changes both lung bases including the lingular region. There is a small of bleb seen superomedial aspect right upper lobe abutting the mediastinum PLEURAL SPACES: Unremarkable. No effusion or pneumothorax. HEART: Heart size is mildly enlarged. . No significant pericardial effusion. LYMPH NODES: Few small to medium-sized mediastinal lymph nodes the largest measuring approximately 15.2 cm located adjacent and abutting the superior posterior margin of the transverse portion of the aortic arch and origin of the left subclavian artery. Few small nonspecific bilateral axillary lymph nodes are present. BONES, CHEST WALL: Unremarkable. No fracture or destructive lesion OTHER FINDINGS: Mild changes of bilateral gynecomastia IMPRESSION: No evidence of acute central pulmonary embolus. Multiple on bilateral nodular densities scattered throughout the lower lobes as well as right middle lobe. Rule out post infectious/ inflammatory etiology versus metastatic disease. Pulmonology consultation recommended. These findings discussed with Dr. Lozano at approximately 12:35 p.m. with written down and read back verification. Atelectasis/scarring changes both lung bases including the lingular region.
[2017-12-29] MEDS ORDERED: Albuterol-Ipratrop 3 mg / 0.5 (3 ml) UD IH STA (12:55)
[2017-12-29] MEDS ORDERED: Albuterol-Ipratrop 3 mg / 0.5 (3 ml) UD ONE (13:22)
--- NOTE | 2017-12-29 22:59 | CARD ---
APPROVED REPORT Date of service: 12/29/2017 EKG Measurement Heart [id number] [place] [id number] <Conclusion> Sinus bradycardia Early repolarization Otherwise normal ECG
[2017-12-29 23:23] VITALS: BP 136/74; PULSE 53; RESP 17; TEMP 98.2; O2SAT 97
== END 2017-12-30 05:29 | disposition left against medical advice (07) ==
LOC: H.ER 07:59 → H.ERHOLD 13:33
PROVIDERS: ADMIT Family Medicine; ATTEND Family Medicine
DX: R07.89 Other chest pain (principal); Z86.718 Personal history of other venous thrombosis and embolism; R06.02 Shortness of breath; R51 Headache; J45.909 Unspecified asthma, uncomplicated; I10 Essential (primary) hypertension; F17.200 Nicotine dependence, unspecified, uncomplicated; Z79.01 Long term (current) use of anticoagulants
CPT/HCPCS: 71046; 71275; 80053; 80324; 80345; 80346; 80349; 80353; 80358; 80361; 83992; 84484; 85025; 85378; 85610; 93005; 99285; G0378; Q9967